=== PATIENT | male | born 2005 | race Caucasian/White ===

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

== ENCOUNTER 2024-11-15 12:51 | Outpatient (AMB) | payer OTHER, SELFPAY ==
--- NOTE | 2024-11-15 13:08 | MHC.PC.OV ---
Vital Signs 11/15/24 13:16 Height 5 ft 8.11 in Weight 142 lb 4 oz BMI 21.6 BP 100/50 L Blood Pressure Location Rt brachial Position Sitting Respiration 16 Pulse 69 Pulse Source Pulse Oximeter Temp 98.1 F Temp Source Oral Pulse Oximetry (%) 98 Oxygen Delivery Method Room Air Intake Visit Reasons: Annual Physical Intake Note: pt here today for a yearly check out. 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 Health Maintenance - STI screening including chlamydia, gonorrhea, HIV, and hepatitis B discussed and agreed upon - Comprehensive metabolic panel, complete blood count, A1c, and lipid panel ordered for routine screening Review of Systems - General: Denies fatigue or general malaise - Gastrointestinal: Denies constipation or abdominal pain - Genitourinary: Reports normal urination 10-point ROS reviewed and negative except as noted in HPI Allergies denies Medications none Medication History none Current Substance Use - Alcohol: Consumes alcohol socially, primarily on weekends and occasionally mid-week Substance Use History none Past Medical History none Past Surgical History none Family History - Father: Hypertension - Family: History of breast cancer Social History - Education: Currently enrolled in an online finance program at [employer] - Recreation: Enjoys playing golf and socializing with friends Physical Exam General: No apparent distress. Alert and oriented x 3. Head: Normocephalic, atraumatic Eyes: Pupils equal, round, and reactive to light. Extraocular movements intact Throat: Oropharynx clear. No tonsillar enlargement. ropharynx clear. Mucus membranes moist Neck: Supple. No lymphadenopathy. eft anterior descending artery distention. No jugular vein distention. No bruit. Cardiovascular: Regular rate and rhythm. Normal S1 and S2. No murmurs. murmurs, rubs, or gallops Lungs: Clear to auscultation bilaterally. Breath sounds equal bilaterally. No rales, ronchi, or wheezes. Abdomen: Non-tender. Non-distended. Bowel sounds auscultated. No masses or organomegaly. hepatosplenomegaly. No mass/rebound/guarding Extremities: No cyanosis, clubbing, or edema. lubbing, cyanosis, and edema. 2+ pulses Neuro: Cranial nerves II-XII grossly intact. Motor/sensory intact. Reflexes 2+. Gait normal. Skin: Warm, dry, and intact. No rash. Discussion Notes During the visit, I discussed the importance of routine screenings, including STI screening and comprehensive blood work. I explained the procedures and addressed any concerns the patient had about the tests. We also talked about the patient's social alcohol use and agreed on the need for moderation. Follow-up was planned to review lab results and address any further questions. Plan 1. establish care, screening labs screening labs follow up in 1-2 weeks Patient Instructions - Schedule follow-up appointment to review lab results. - Maintain moderation in alcohol consumption. - Complete lab tests as discussed during the visit. [facility] Medical History No known health problems Surgical History No pertinent past surgical history Family History Father No problems noted. Mother No problems noted. Sister No problems noted. Social History (Updated 11/15/24 @ 13:16 by Roberto Cuevas MA) Household Members: Family Both parents involved: Yes Housing: House Alcohol intake: current Alcohol intake frequency: a few times a month (social) Patient Tobacco Use Status: Never used Tobacco Substance Use Type: Marijuana service: No Current occupational status: student Cognitive needs: No Hearing needs: No Vision needs: No Questionnaire PHQ-9 Over the last 2 weeks, how often have you been bothered by any of the following problems? 1. Little interest or pleasure in doing things: not at all 2. Feeling down, depressed, or hopeless: not at all 3. Trouble falling or staying asleep, or sleeping too much: several days 4. Feeling tired or having little energy: not at all 5. Poor appetite or overeating: not at all 6. Feeling bad about yourself - or that you are a failure or have let yourself or your family down: not at all 7. Trouble concentrating on things, such as reading the newspaper or watching television: several days 8. Moving or speaking so slowly that other people could have noticed. Or the opposite - being so fidgety or restless that you have been moving around a lot more than usual: not at all 9. Thoughts that you would be better off or of hurting yourself in some way: not at all Total score: 2 Depression Screening Interpretation: Negative Depression Screening Done: Yes Source: Developed by Drs. Nghia Wallace, Lolis Trejo, Eliud Walton and colleagues, with an educational marco antonio from [employer]. Thrive Questionnaire Date Thrive assessed: 11/15/24 I am a: Patient What is your living situation today?: I have a steady place to live Within the past 12 months, did the food you bought not last and you didn't have the money to get more?: Never true Within the past 12 months, did you worry whether your food would run out before you got money to buy more?: Never true Do you have trouble paying for medicines?: No Do you have trouble getting transportation to medical appointments?: No Do you have trouble paying your heating and electricity bill?: No Do you have trouble taking care of your child, family member or friend?: No Are you currently unemployed and looking for a job?: No Are you interested in more education?: Yes Please select the resources that you would like help with: None Currently or been in a relationship where the following occur: No concerns reported THRIVE Score: 0 AUDIT C Alcohol Use Questionnaire (AUDIT-C) 1. How often do you have a drink containing alcohol?: 2-3 times a week 2. How many drinks containing alcohol do you have on a typical day when you are drinking?: 5 or 6 3. How often do you have six or more drinks on one occasion?: Monthly Total Score: 7 ELY-7 AMB Questionnaire ELY-7 Date ELY - 7 assessed: 11/15/24 Feeling nervous, anxious, or on edge: 1 = Several days Not being able to stop or control worryin = Not at all Worrying too much about different things: 1 = Several days Trouble relaxin = Not at all Being so restless that it is hard to sit still: 0 = Not at all Becoming easily annoyed or irritable: 1 = Several days Feeling afraid as if something awful might happen: 0 = Not at all Total ELY-7 score (0-4 normal; 5-9 mild; 10-14 moderate; 15-21 severe): 3 Source: Developed by Drs. Nghia Wallace, Lolis Trejo, Eliud Walton and colleagues, with an educational marco antonio from [employer]. Physical exam (Primary Care) Vital Signs: Last Vital Signs Temp 98.1 F 11/15/24 13:16 Pulse 69 11/15/24 13:16 Resp 16 11/15/24 13:16 BP 100/50 L 11/15/24 13:16 Pulse Ox 98 11/15/24 13:16 Oxygen Delivery Method Room Air 11/15/24 13:16 BMI result Body Mass Index 21.6 Tobacco/Smoking Status: Tobacco use Status Tobacco use date assessed 11/15/24 11/15/24 13:12 Patient Tobacco Use Status Never used Tobacco 11/15/24 13:16 PHQ-9: PHQ-9 Score PHQ-9: Total score 2 11/15/24 13:18 Depression Screening Interpretation: Negative Thrive Assessment: Date of Thrive Assessment Date Thrive assessed 11/15/24 11/15/24 13:12 Currently or been in a relationship where the following occur: No concerns reported Coding Level of Care Code New Pt Level 3 (82927) Diagnoses Encounter to establish care with new provider Z76. Routine lab draw Z01. Hypertension screen Z13.6 Screening for diabetes mellitus Z13.1 Screening for lipoid disorders Z13.220 Routine screening for STI (sexually transmitted infection) Z11.3 Counseling, unspecified Z71.9 Screening for HIV (human immunodeficiency virus) Z11.4 Encounter for screening, unspecified Z13.9 Assessment & Plan Assessment & Plan (1) Encounter to establish care with new provider: Code(s): Z76.89 - Persons encountering health services in other specified circumstances (2) Routine lab draw: Code(s): Z01.89 - Encounter for other specified special examinations (3) Hypertension screen: Code(s): Z13.6 - Encounter for screening for cardiovascular disorders (4) Screening for diabetes mellitus: Code(s): Z13.1 - Encounter for screening for diabetes mellitus (5) Screening for lipoid disorders: Code(s): Z13.220 - Encounter for screening for lipoid disorders (6) Routine screening for STI (sexually transmitted infection): Code(s): Z11.3 - Encounter for screening for infections with a predominantly sexual mode of transmission (7) Counseling, unspecified: Code(s): Z71.9 - Counseling, unspecified (8) Screening for HIV (human immunodeficiency virus): Code(s): Z11.4 - Encounter for screening for human immunodeficiency virus [HIV] (9) Encounter for screening, unspecified: Code(s): Z13.9 - Encounter for screening, unspecified Plan Orders: Orders Complete Blood Count Auto Diff Today Z76.89 - Persons encountering health services in other specified circumstances Comprehensive Met. Panel Today . - Persons encountering health services in other specified circumstances Hepatitis B Surface Antigen Today .89 - Persons encountering health services in other specified circumstances HIV Ab/Ag Today 76. - Persons encountering health services in other specified circumstances Lipid Panel Today 76.89 - Persons encountering health services in other specified circumstances UA CC w/rflx Micro + Cult Today 76. - Persons encountering health services in other specified circumstances Vitamin D 1,25 dihydroxy Today 76.89 - Persons encountering health services in other specified circumstances Hemoglobin A1c Today 76.89 - Persons encountering health services in other specified circumstances Hepatitis B Surface Antibody Today 76.89 - Persons encountering health services in other specified circumstances Hepatitis C Antibody Today 76.89 - Persons encountering health services in other specified circumstances
[2024-11-15 13:16] VITALS: BP 100/50; PULSE 69; RESP 16; TEMP 36.7; O2SAT 98; BMI 21.6
== END 2024-11-15 13:34 | disposition home or self-care (01) ==
LOC: HO.HMCFMS 12:52
PROVIDERS: PCP Student in an Organized Health Care Education/Training Program; Visit Provider Student in an Organized Health Care Education/Training Program
DX: Z00.00 Encounter for general adult medical examination without abnormal findings (principal)

== ENCOUNTER 2024-11-15 12:51 | Outpatient (REF) | payer OTHER, SELFPAY ==
[2024-11-15 17:28] LABS: MANUAL DIFF FLAG NO
[2024-11-15 17:36] LABS: Hematocrit 44.5 % (42.0-52.0); Hemoglobin 15.2 g/dl (14.0-18.0); Imm Gran Abs Auto 0.00 X10*3/uL (0.00-0.03); Imm Gran Pct Auto 0.0 % (0.0-0.4); Lymphocytes Absolute Auto 1.4 X10*3/uL (1.2-4.9); Mean Corpuscular HGB Conc 34.2 g/dl (31.0-36.0); Mean Corpuscular Hemoglobin 30.5 pg (27.0-33.0); Mean Corpuscular Volume 89.4 fL (80.0-98.0); NRBC Abs Auto 0.000 X10*3/uL (0.0-0.012); NRBC Pct Auto 0.0 /100WBC (0.0-0.2); Platelet Count 307 X10*3/uL (160-400); Red Blood Count 4.98 X10*6/uL (4.60-5.80); White Blood Count 4.7 X10*3/uL (4.8-10.8)
[2024-11-15 18:04] LABS: Alanine Aminotransferase 107 U/L (0-40); Albumin Level 5.0 g/dL (3.5-5.0); Alkaline Phosphatase 80 U/L (39-117); Anion Gap 12 (12-20); Aspartate Amino Transferase 331 U/L (5-37); Blood Urea Nitrogen 10 mg/dL (9-16); Calcium 9.7 mg/dL (8.4-10.2); Carbon Dioxide 26 mmol/L (22-29); Chloride 107 mmol/L (96-108); Cholesterol 136 mg/dL (<200); Estimated Glomerular Filt Rate > 60; HDL Cholesterol 68 mg/dL (>40); Potassium 4.3 mmol/L (3.3-5.1); Sodium 141 mmol/L (135-145); Total Protein 7.6 g/dL (6.5-8.0); Triglycerides 48 mg/dL (<150)
[2024-11-16 08:45] LABS: HBS Num1 0.44 mIU/mL (0-7.99); HBsAGNum1 0.43 S/CO (0.00-0.99); HIV Num 1 0.05 S/CO (0.00-0.99); Hepatitis B Surface Antigen Negative (Negative); ~HepC Num1 0.04 S/CO (0.00-0.79); ~Hepatitis B Surface Antibody NONREACTIVE (Nonreactive); ~Hepatitis C Antibody Nonreactive (Nonreactive)
[2024-11-19 12:23] LABS: VITAMIN D (1,25 OH) D3 46 pg/mL; Vit D (1,25-Dihydroxy) Total 46 pg/mL (18-72); Vitamin D (1,25 OH) D2 <8 pg/mL
== END 2024-11-15 12:52 | disposition home or self-care (01) ==
LOC: HO.HKASLDS 12:51
PROVIDERS: PCP Student in an Organized Health Care Education/Training Program; Visit Provider Student in an Organized Health Care Education/Training Program
DX: Z76.89 Persons encountering health services in other specified circumstances (principal); Z01.89 Encounter for other specified special examinations; Z13.6 Encounter for screening for cardiovascular disorders; Z13.1 Encounter for screening for diabetes mellitus; Z13.220 Encounter for screening for lipoid disorders; Z11.3 Encounter for screening for infections with a predominantly sexual mode of transmission; Z71.9 Counseling, unspecified; Z11.4 Encounter for screening for human immunodeficiency virus [HIV]; Z13.9 Encounter for screening, unspecified
CPT/HCPCS: 36415; 80053; 80061; 82652; 83036; 85025; 86706; 86803; 87340; 87389; 96127

== ENCOUNTER 2024-11-26 08:26 | Outpatient (AMB) | payer OTHER, SELFPAY ==
--- NOTE | 2024-11-26 08:26 | MHC.PC.OV ---
Vital Signs 11/26/24 08:30 Height 5 ft 8.11 in Weight 141 lb 6 oz BMI 21.4 BP 96/40 L Blood Pressure Location Rt brachial Position Sitting Respiration 16 Pulse 62 Pulse Source Pulse Oximeter Temp 97.7 F Temp Source Oral Pulse Oximetry (%) 96 Oxygen Delivery Method Room Air Intake Visit Reasons: follow up labs Intake Note: pt here today for a yearly check out. 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 Elevated liver enzymes: - Liver enzymes AST and ALT are elevated, with AST greater than ALT, suggestive of alcohol-related liver changes. - Hepatitis C and HIV tests are nonreactive, and Hepatitis B is negative. - A liver ultrasound is planned to further evaluate liver status. Alcohol use: - The patient reports regular alcohol consumption, which may be contributing to liver enzyme elevation. - Advised to reduce alcohol intake and recheck liver enzymes in three months. Review of Systems 10-point ROS reviewed and negative except as noted in HPI Past Medical History Health Maintenance - Hepatitis B vaccination recommended for future protection. Physical Exam General: Well-appearing, in no acute distress. Vital signs: Within normal limits. HEENT: Normocephalic, atraumatic. PERRLA, EOMI. Conjunctiva clear, sclera anicteric. Oropharynx clear, mucous membranes moist. TMs intact bilaterally. Neck: Supple, no lymphadenopathy, no thyromegaly, no JVD or carotid bruits. Cardiovascular: RRR, normal S1/S2, no murmurs, rubs, or gallops. Peripheral pulses 2+ and symmetric. No edema. Respiratory: Lungs clear to auscultation bilaterally, no wheezes, rales, or rhonchi. Normal effort. Abdomen: Soft, non-tender, non-distended. Normoactive bowel sounds. No hepatosplenomegaly, no masses. MSK: Full range of motion, no joint swelling or deformity. Normal gait. Skin: Warm, dry, intact. No rashes, lesions, or pallor. Neuro: Alert and oriented x3. Cranial nerves II-XII intact. Strength 5/5 throughout. Sensation intact. Reflexes 2+ symmetric. Normal coordination and gait. Psych: Appropriate mood and affect. Normal judgment and insight. Plan 1. Abnormal levels of other serum enzymes R74.8 - Plan to perform a liver ultrasound to assess liver condition. - Recheck liver enzymes in three months to monitor changes. 2. Alcohol Use - Advised to reduce alcohol consumption to improve liver health. - Follow-up planned in three months to reassess liver enzymes and alcohol use. 3. Other specified health status Z78.9 needs hep b vaccine series Discussion Notes I discussed with the patient the significance of elevated liver enzymes and the potential impact of alcohol consumption on liver health. We agreed on the need for a liver ultrasound to further evaluate liver status and the importance of reducing alcohol intake. I emphasized the plan to recheck liver enzymes in three months and the potential need for hepatitis B vaccination in the future. Patient Instructions - Reduce alcohol consumption to improve liver health. - Schedule a liver ultrasound as advised. - Return for follow-up in three months to reassess liver enzymes. - Consider hepatitis B vaccination when available. [facility] Medical History No known health problems Surgical History No pertinent past surgical history Family History Father No problems noted. Mother No problems noted. Sister No problems noted. Social History Household Members: Family Both parents involved: Yes Housing: House Alcohol intake: current Alcohol intake frequency: a few times a month (social) Patient Tobacco Use Status: Never used Tobacco Substance Use Type: Marijuana service: No Current occupational status: student Cognitive needs: No Hearing needs: No Vision needs: No Questionnaire PHQ-9 Over the last 2 weeks, how often have you been bothered by any of the following problems? 1. Little interest or pleasure in doing things: not at all 2. Feeling down, depressed, or hopeless: not at all 3. Trouble falling or staying asleep, or sleeping too much: several days 4. Feeling tired or having little energy: not at all 5. Poor appetite or overeating: not at all 6. Feeling bad about yourself - or that you are a failure or have let yourself or your family down: not at all 7. Trouble concentrating on things, such as reading the newspaper or watching television: several days 8. Moving or speaking so slowly that other people could have noticed. Or the opposite - being so fidgety or restless that you have been moving around a lot more than usual: not at all 9. Thoughts that you would be better off or of hurting yourself in some way: not at all Total score: 2 Depression Screening Interpretation: Negative Depression Screening Done: Yes Source: Developed by Drs. Nghia Wallace, Lolis Trejo, Eliud Walton and colleagues, with an educational marco antonio from [employer]. Thrive Questionnaire Date Thrive assessed: 11/15/24 I am a: Patient What is your living situation today?: I have a steady place to live Within the past 12 months, did the food you bought not last and you didn't have the money to get more?: Never true Within the past 12 months, did you worry whether your food would run out before you got money to buy more?: Never true Do you have trouble paying for medicines?: No Do you have trouble getting transportation to medical appointments?: No Do you have trouble paying your heating and electricity bill?: No Do you have trouble taking care of your child, family member or friend?: No Are you currently unemployed and looking for a job?: No Are you interested in more education?: Yes Please select the resources that you would like help with: None Currently or been in a relationship where the following occur: No concerns reported THRIVE Score: 0 AUDIT C Alcohol Use Questionnaire (AUDIT-C) 1. How often do you have a drink containing alcohol?: 2-3 times a week 2. How many drinks containing alcohol do you have on a typical day when you are drinking?: 5 or 6 3. How often do you have six or more drinks on one occasion?: Monthly Total Score: 7 ELY-7 AMB Questionnaire ELY-7 Date ELY - 7 assessed: 11/15/24 Feeling nervous, anxious, or on edge: 1 = Several days Not being able to stop or control worryin = Not at all Worrying too much about different things: 1 = Several days Trouble relaxin = Not at all Being so restless that it is hard to sit still: 0 = Not at all Becoming easily annoyed or irritable: 1 = Several days Feeling afraid as if something awful might happen: 0 = Not at all Total ELY-7 score (0-4 normal; 5-9 mild; 10-14 moderate; 15-21 severe): 3 Source: Developed by Drs. Nghia Wallace, Lolis Trejo, Eliud Walton and colleagues, with an educational marco antonio from [employer]. Physical exam (Primary Care) Tobacco/Smoking Status: Tobacco use Status Tobacco use date assessed 11/15/24 11/26/24 08:27 Patient Tobacco Use Status Never used Tobacco 11/26/24 08:27 PHQ-9: PHQ-9 Score PHQ-9: Total score 2 11/26/24 08:27 Depression Screening Interpretation: Negative Thrive Assessment: Date of Thrive Assessment Date Thrive assessed 11/15/24 11/26/24 08:27 Currently or been in a relationship where the following occur: No concerns reported Coding Level of Care Code Est Pt Level 3 (63309) Diagnoses Encounter to discuss test results Z71.2 Liver enzyme elevation R74.8 Encounter for antibody response examination Z.84 Assessment & Plan Assessment & Plan (1) Encounter to discuss test results: Code(s): Z71.2 - Person consulting for explanation of examination or test findings (2) Liver enzyme elevation: Code(s): R74.8 - Abnormal levels of other serum enzymes (3) Encounter for antibody response examination: Code(s): Z01.84 - Encounter for antibody response examination Plan Orders: Orders US abdomen limited Today R74.8 - Abnormal levels of other serum enzymes
[2024-11-26 08:30] VITALS: BP 96/40; PULSE 62; RESP 16; TEMP 36.5; O2SAT 96; BMI 21.4
== END 2024-11-26 08:41 | disposition home or self-care (01) ==
PROVIDERS: PCP Student in an Organized Health Care Education/Training Program; Visit Provider Student in an Organized Health Care Education/Training Program
DX: R74.8 Abnormal levels of other serum enzymes (principal); Z71.2 Person consulting for explanation of examination or test findings; Z01.84 Encounter for antibody response examination

== ENCOUNTER 2024-11-30 07:25 | Outpatient (REF) | payer OTHER, SELFPAY ==
--- NOTE | ~2024-11-30 | US_ITS ---
EXAMINATION: US ABDOMEN LIMITED CLINICAL INFORMATION: Abnormal LFTs. ALT 107, AST 331. COMPARISON: None available. TECHNIQUE: Real-time imaging of the right upper quadrant abdominal viscera. FINDINGS: PANCREAS: Visualized portions are unremarkable. LIVER: The liver is normal in size and measures 14.6 cm. The liver contour is normal. Parenchymal echogenicity is normal. No focal hepatic lesion. There is no intrahepatic biliary duct dilatation seen. GALLBLADDER: The gallbladder is physiologically distended without evidence of stones, sludge, polyps, wall thickening or pericholecystic fluid. There is no tenderness in right upper quadrant by ultrasound probe. COMMON BILE DUCT: Normal in caliber measuring 0.3 cm in diameter. RIGHT KIDNEY: No hydronephrosis. No renal calculi or focal parenchymal lesions. The kidney measures 9.7 cm cm in maximum dimension. FREE FLUID: None. US/US abdomen limited IMPRESSION: Unremarkable limited abdominal ultrasound Electronically signed by: Jean Alejandro MD 11/30/2024 08:05 AM EDT
== END 2024-11-30 07:26 | disposition home or self-care (01) ==
LOC: HO.US 07:25
PROVIDERS: PCP Student in an Organized Health Care Education/Training Program; Visit Provider Student in an Organized Health Care Education/Training Program
DX: R74.8 Abnormal levels of other serum enzymes (principal)
CPT/HCPCS: 76705

== ENCOUNTER → 2024-11-30 07:29 | Outpatient (BNV) | payer OTHER, SELFPAY | PROVIDERS: PCP Student in an Organized Health Care Education/Training Program; Visit Provider Radiology Diagnostic Radiology | DX: R94.5 Abnormal results of liver function studies (principal) | CPT/HCPCS: 76705 ==